=== PATIENT | male | born 1975 | race Caucasian/White ===

== ENCOUNTER 2019-12-04 14:32 | Emergency (ER) | payer OTHER ==
[~2019-12-04] VITALS: Ht 177.8 cm; Wt 137.0 kg
[2019-12-04 14:36] VITALS: BP 142/98
== END 2019-12-04 21:44 | disposition left against medical advice (07) ==
LOC: ER 14:32
DX: M54.9 Dorsalgia, unspecified (principal); Z53.21 Procedure and treatment not carried out due to patient leaving prior to being seen by health care provider